=== PATIENT | male | born 1995 | race African-American/Black ===

== ENCOUNTER 2017-02-28 06:11 | Emergency (ER) | payer OTHER ==
[~2017-02-28] VITALS: Ht 177.8 cm; Wt 77.0 kg
[2017-02-28] MEDS ORDERED: IBUP1TAB7 PO (06:22)
[2017-02-28 06:45] LABS: BASO % 0.3 % (0.0-1.0); EOS % 0.5 % (0.0-3.0); IMMATURE GRANULOCYTE % 0.2 % (0-0); LYMPH # 1.2 10^3/uL (1.5-6.5); LYMPH % 18.9 % (24.0-44.0); MEAN CORPUSCULAR HEMOGLOBIN 28.9 pg (27.0-33.0); MEAN CORPUSCULAR HGB CONC 33.6 g/dl (32.0-36.5); MEAN CORPUSCULAR VOLUME 85.9 fl (80.0-96.0); MONO # 0.4 10^3/uL (0.0-0.8); NEUTROPHILS # 4.6 10^3/uL (1.8-7.7); NEUTROPHILS % 73.1 % (36.0-66.0); PLATELET COUNT, AUTOMATED 189 10^3/uL (150-450); WHITE BLOOD COUNT 6.3 10^3/uL (4.0-10.0)
[2017-02-28] MEDS ORDERED: KETOROLAC 30 MG/ML VIAL (J1885) IV ONE (06:45)
[2017-02-28] MEDS ORDERED: ONDANSETRON 4MG/2ML VIAL (J2405) IV ONE (06:45)
[2017-02-28] MEDS ORDERED: NS 1,000 ML IV ONE (06:45)
[2017-02-28] MEDS ORDERED: ZOFR4TAB3 PO (06:58)
[2017-02-28 07:25] LABS: ALKALINE PHOSPHATASE 57 U/L (45-117); ALT/SGPT 15 U/L (12-78); ANION GAP 3 MEQ/L (8-16); AST/SGOT 13 U/L (15-37); BILIRUBIN,DIRECT 0.1 MG/DL (0.0-0.2); BILIRUBIN,TOTAL 0.5 MG/DL (0.2-1.0); BLOOD UREA NITROGEN 15 MG/DL (7-18); CALCIUM LEVEL 9.6 MG/DL (8.5-10.1); CARBON DIOXIDE LEVEL 31 MEQ/L (21-32); CHLORIDE LEVEL 104 MEQ/L (98-107); GLOMERULAR FILTRATION RATE > 60.0 (>60); GLUCOSE, FASTING 89 MG/DL (70-105); POTASSIUM SERUM 3.9 MEQ/L (3.5-5.1); SODIUM LEVEL 138 MEQ/L (136-145)
[2017-02-28 07:39] VITALS: BP 103/53
== END 2017-02-28 07:44 | disposition home or self-care (01) ==
LOC: M ED 06:11
DX: K29.70 Gastritis, unspecified, without bleeding (principal); Z88.0 Allergy status to penicillin
CPT/HCPCS: 36415; 80048; 80076; 83690; 85025; 96374; 96375; 99284; J1885; J2405

== ENCOUNTER 2019-01-21 12:40 | Emergency (ER) | payer OTHER ==
[~2019-01-21] VITALS: Ht 175.3 cm; Wt 76.8 kg
[~2019-01-21 12:40] MED LIST: IBUP1TAB7 PO; ZOFR4TAB14 PO
[2019-01-21 12:41] VITALS: BP 142/72
[2019-01-21] MEDS ORDERED: KETOROLAC 60 MG/2 ML VIAL (J1885) IM ONE (13:30)
[2019-01-21] MEDS ORDERED: ACETAMINOPHEN 325 MG TAB PO ONE (14:45)
--- NOTE | 2019-01-21 14:57 | REP ---
THORACIC SPINE, AP AND LATERAL: AP and lateral views of the thoracic spine performed. There is no compress fracture or malalignment. There is normal thoracic kyphosis. Disc spaces are well preserved. Posterior elements are intact. IMPRESSION: No abnormalities detected. Electronically Signed by Shai Moore MD 01/21/2019 05:41 P
--- NOTE | 2019-01-21 15:06 | REP ---
LUMBOSACRAL SPINE: Five views of the lumbosacral spine performed. There is no compression fracture. There is normal lumbar lordosis. There is no spondylolysis or spondylolisthesis. Disc spaces are well preserved. Posterior elements are intact. IMPRESSION: Negative lumbosacral spine series. Electronically Signed by Shai Moore MD 01/21/2019 05:42 P
[2019-01-21] MEDS ORDERED: KETO10TAB PO (15:27)
--- NOTE | 2019-01-21 15:41 | REP ---
CERVICAL SPINE: AP and lateral views of the cervical spine are performed. Images are submitted for interpretation at 3:25 pm. There is no compression fracture identified. There is normal cervical lordosis and alignment. There is no disc space narrowing. There is no prevertebral soft tissue swelling. IMPRESSION: Unremarkable cervical spine, AP and lateral. If there is concern for fracture then CT would be recommended. Electronically Signed by Shai Moore MD 01/21/2019 05:53 P
== END 2019-01-21 15:28 | disposition home or self-care (01) ==
LOC: M ED 12:40
DX: S20.229A Contusion of unspecified back wall of thorax, initial encounter (principal); X58.XXXA Exposure to other specified factors, initial encounter; Y92.89 Other specified places as the place of occurrence of the external cause; Z88.0 Allergy status to penicillin; Z88.1 Allergy status to other antibiotic agents; Z88.2 Allergy status to sulfonamides
CPT/HCPCS: 72040; 72070; 72110; 96372; 99283; J1885